=== PATIENT | male | born 1990 | race Caucasian/White ===

== ENCOUNTER 2018-01-08 22:20 | Emergency (ER) | payer OTHER, SELFPAY ==
[2018-01-08 22:26] VITALS: BP 140/77; PULSE 63; RESP 16; TEMP 37; O2SAT 100; BMI 26.5
[2018-01-08 23:18] VITALS: BP 130/75; PULSE 77; RESP 16; O2SAT 100
--- NOTE | 2018-01-09 05:11 | ED_ITS ---
HPI - Wound/Laceration General Chief Complaint: Wound/Laceration Stated Complaint: LEFT HAND LACERATION Time Seen by Provider: 01/08/18 22:29 Source: patient Mode of arrival: ambulatory Limitations: no limitations History of Present Illness HPI narrative: 27-year-old otherwise healthy male presents with a chief complaint of a laceration to the tip of his left thumb while using a sharp knife to remove reflective material from a helmet. He has full range of motion and denies numbness, tingling or weakness. His tetanus is up-to-date. He denies other injury Onset (ago): minute(s) Extremity Location: Left: hand Place: home Patient tetanus UTD: Yes Context: accidental Associated symptoms: none Review of Systems Review of Systems All systems reviewed & are unremarkable except as noted in HPI and below Constitutional Denies chills, Denies fever(s), Denies lethargy and Denies weakness Eyes Denies change in vision, Denies eye discharge, Denies irritation and Denies loss of vision ENT Ears, Nose, Mouth, and Throat: Denies change in voice, Denies neck pain and Denies sore throat Cardiovascular Denies chest pain, Denies irregular heart rhythm, Denies lightheadedness, Denies palpitations, Denies dyspnea, Denies dyspnea on exertion and Denies orthopnea Respiratory Denies cough, Denies dyspnea, Denies dyspnea on exertion and Denies wheezing Gastrointestinal Gastrointestinal: Denies abdominal pain, Denies change in bowel habits, Denies diarrhea, Denies nausea and Denies vomiting Genitourinary Denies hematuria, Denies flank pain, Denies urinary incontinence and Denies urinary urgency Musculoskeletal Denies neck pain Integumentary/Breasts Denies pruritus, Denies erythema, Denies rash and Reports wounds Neurologic Denies confusion, Denies loss of vision and Denies weakness Psychiatric Denies anxiety, Denies confusion, Denies depression, Denies homicidal ideation and Denies suicidal ideation Endocrine Denies palpitations Hematologic/Lymphatic Denies easy bruising Allergic/Immunologic Denies wheezing [facility] Social History Smoking Status: Never smoker Exam Narrative Exam Narrative: GEN: AOx3 and in mild distress EYES: Pupils are equal, round, and reactive to light and accommodation. Extraoccular muscles are intact bilaterally. There is no subconjunctival hemorrhage or exudate. CHEST: Lungs are clear to auscultation bilaterally and free of wheezes, rales, or rhonchi. Heart rate is regular rhythm, there are no murmurs, clicks, rubs, or gallops. There is no chest wall tenderness. ABD: Abdomen is soft and nontender. There is no guarding or rebound. Bowel sounds are normal in all 4 quadrants. There is no mass or organomegaly. EXT: Full painless ROM of all extremities with no loss of sensation or strength. SKIN: 1.5 cm superficial laceration to tip of left thumb. No tendon, bone or arterial involvement Warm, pink, and dry. No erythema or rash Initial Vital Signs Initial Vital Signs: Vital Signs Temperature 98.6 F 01/08/18 22:26 Pulse Rate 63 01/08/18 22:26 Respiratory Rate 16 01/08/18 22:26 Blood Pressure 140/77 H 01/08/18 22:26 Pulse Oximetry 100 01/08/18 22:26 Procedures Laceration Repair Laceration 1: Site: hand Side (If applicable): left Size (cm): 1.5 Description: linear Depth: simple, single layer Local Anesthetic: lidocaine 1% Amount of anesthesia used (mL): 4 Pre-repair: wound explored Skin layer closed with: nylon Size (cm): 5-0 Number of sutures: 4 Technique: simple, interrupted Course Vital Signs - 8 hr 01/08/18 22:26 01/08/18 23:18 Temperature 98.6 F Pulse Rate 63 77 Respiratory Rate 16 16 Blood Pressure 140/77 H 130/75 H Pulse Oximetry 100 100 Discharge Plan Departure Patient Disposition: Home Clinical Impression: Laceration of thumb Discharge Date/Time: 01/08/18 23:19 Interventions: ED Discharge Assessment Last Done: 01/08/18 23:18 Instructions: DI for Laceration Repair Activity Restrictions/Additional Instructions: Please keep the wound clean and dry to the best of your ability. Please monitor for signs of infection such as redness to the skin or increasing pain. Have the sutures removed by your doctor in about 7 days. If you are unable to get into your doctor, we would be happy to remove the sutures in that same timeframe.
== END 2018-01-08 23:19 | disposition home or self-care (01) ==
PROVIDERS: Emergency Provider Emergency Medicine; Family Provider Preventive Medicine Aerospace Medicine; PCP Preventive Medicine Aerospace Medicine
DX: S61.412A Laceration without foreign body of left hand, initial encounter (principal); W26.0XXA Contact with knife, initial encounter
CPT/HCPCS: 12002; 99283

== ENCOUNTER → 2019-02-22 16:33 | Outpatient (CLI) | payer OTHER, SELFPAY | PROVIDERS: PCP Preventive Medicine Aerospace Medicine | DX: Z23 Encounter for immunization (principal) | CPT/HCPCS: 90471; 90686 ==

== ENCOUNTER → 2021-01-02 13:12 | Outpatient (CLI) | payer OTHER, SELFPAY ==
[2021-01-02 14:17] LABS: COVID19 -Nasal RAPID Negative (Negative)
== END ==
PROVIDERS: PCP Family Medicine; Visit Provider Physician Assistant
DX: R05 Cough (principal); Z20.822 Contact with and (suspected) exposure to COVID-19
CPT/HCPCS: 87635

== ENCOUNTER → 2021-03-19 10:58 | Outpatient (CLI) | payer OTHER, SELFPAY ==
--- NOTE | 2021-03-19 11:00 | DI.RAD.S_ITS ---
PROCEDURE: XR KNEE RT 3V INDICATIONS: right knee and low back pain TECHNIQUE: 3 views of the knee were acquired. COMPARISON: None. FINDINGS: Bones: No fractures or dislocations. No suspicious bony lesions. Soft tissues: Prominent joint effusion. No suspicious soft tissue calcifications. IMPRESSION: Prominent effusion. No visualized acute fracture or dislocation. However, if clinical concern and/or pain persist, short interval imaging followup in 7-10 days is recommended, as occult injury cannot be definitively excluded. Dictated by: Aby Langley M.D. on 03/19/2021 at 17:19 Approved by: Aby Langley M.D. on 03/19/2021 at 17:21
--- NOTE | 2021-03-19 11:00 | DI.RAD.S_ITS ---
PROCEDURE: XR LUMBAR SPINE 2-3V INDICATIONS: right knee and low back pain TECHNIQUE: 3 views of the lumbar spine were acquired. COMPARISON: None. FINDINGS: Bones: 5 [id number] vertebrae are present. Trace levo curvature centered at the L3 level.. No vertebral body compression fractures. No suspicious bony lesions. Soft tissues: Overlying bowel gas pattern is normal. No suspicious soft tissue calcifications. IMPRESSION: Trace levocurvature; otherwise normal L-spine. Dictated by: Manjit Christopher [facility] Interpreted: Oscar Ochoa MD on 03/19/2021 at 11:26 Transcribed by: SHA on 03/19/2021 at 11:27 Approved by: Oscar Ochoa M.D. on 03/19/2021 at 11:50
== END ==
PROVIDERS: PCP Family Medicine; Referring Provider Family Medicine; Visit Provider Family Medicine
DX: M25.561 Pain in right knee (principal); M54.50 Low back pain, unspecified; M25.461 Effusion, right knee
CPT/HCPCS: 72110; 73562

== ENCOUNTER → 2022-04-11 13:25 | Outpatient (CLI) | payer OTHER, SELFPAY ==
[2022-04-11 14:31] LABS: Influenza A - CEPHEID Flu A POSITIVE (NEGATIVE); Influenza B - CEPHEID Flu B NEGATIVE (NEGATIVE); Respiratory Syncytial Virus Negative (Negative)
[2022-04-11 14:34] LABS: COVID-19 CEPHEID 4-PLEX PCR Negative (Negative)
== END ==
PROVIDERS: PCP Family Medicine; Visit Provider Registered Nurse
DX: R05.9 Cough, unspecified (principal)
CPT/HCPCS: 0241U

== ENCOUNTER → 2022-08-01 11:11 | Outpatient (CLI) | payer OTHER, SELFPAY ==
[2022-08-01 11:29] LABS: Add Manual Diff / Slide Review NO; Basophils Absolute Auto 0 /uL (0-100); Basophils Percent Auto 0.8 % (0-2); Eosinophils Absolute Auto 100 /uL (0-450); Eosinophils Percent Auto 1.8 % (2-4); Hemoglobin 13.9 g/dL (13.5-17.5); Lymphocytes Absolute Auto 1200 /uL (1100-4500); Lymphocytes Percent Auto 29.7 % (25-40); Mean Corpuscular HGB Conc 33.8 % (30-36); Mean Corpuscular Hemoglobin 29.4 PG (26-34); Mean Corpuscular Volume 87.1 fL (80-100); Monocytes Absolute Auto 500 /uL (0-900); Monocytes Percent Auto 11.7 % (3-14); Neutrophils Absolute Auto 2300 /uL (1500-7000); Platelet Count 207 X10^3/uL (150-400); Red Blood Cell Count 4.71 X10^6/uL (4.5-5.9); Red Cell Distribution Width 13.2 % (11.6-14.8); White Blood Cell Count 4.1 X10^3/uL (4.5-11.0)
[2022-08-01 11:40] LABS: Alanine Aminotransferase 31 IU/L (<50); Albumin 4.5 g/dL (3.5-5.0); Albumin Globulin Ratio 1.5 (1.0-2.8); Alkaline Phosphatase 57 U/L (38-126); Aspartate Aminotransferase 30 IU/L (17-59); BUN Creatinine Ratio 19.6 (6-22); Bilirubin Total 0.6 mg/dL (0.2-1.3); Blood Urea Nitrogen 18 mg/dL (9-20); Calcium 8.9 mg/dL (8.4-10.2); Carbon Dioxide 27 mmol/L (22-32); Chloride 104 mmol/L (98-107); Cholesterol 198 mg/dL (140-199); Estimated Glomerular Filt Rate > 60 mL/min (>60); Globulin 3.1 g/dL (1.7-4.1); Glucose 95 mg/dL (70-100); HDL Cholesterol 71 mg/dL (40-60); HEMOLYSIS < 15 (0-50); LDL Cholesterol Calculated 119 mg/dL (<100); Sodium 140 mmol/L (137-145); Total Protein 7.6 g/dL (6.3-8.2); Triglycerides 41 mg/dL (35-150)
== END ==
PROVIDERS: PCP Family Medicine; Referring Provider Family Medicine; Visit Provider Family Medicine
DX: Z00.00 Encounter for general adult medical examination without abnormal findings (principal)
CPT/HCPCS: 36415; 80053; 80061; 83036; 85025

== ENCOUNTER → 2022-08-16 16:40 | Outpatient (CLI) | payer OTHER, SELFPAY ==
[2022-09-03 10:54] LABS: Acetylcholine Receptor Bind AB <0.03
[2022-09-03 11:00] LABS: Acetylcholine Blocking AB 12
[2022-09-03 11:04] LABS: Acetylcholine Modulating AB 0
== END ==
PROVIDERS: PCP Family Medicine; Referring Provider Family Medicine; Visit Provider Family Medicine
DX: H02.409 Unspecified ptosis of unspecified eyelid (principal); H57.02 Anisocoria
CPT/HCPCS: 36415; 83519

== ENCOUNTER → 2022-08-25 08:56 | Outpatient (CLI) | payer OTHER, SELFPAY ==
--- NOTE | 2022-08-25 11:37 | DI.MRI.S_ITS ---
PROCEDURE: MR HEAD/BRAIN WO/W CON INDICATIONS: New headache, visual field deficit, drooping eyelid TECHNIQUE: Noncontrast axial T1 spin echo, axial T2 fast spin echo, sagittal and axial FLAIR, coronal T2 fast spin echo, axial gradient echo, axial diffusion and ADC through the brain. After the administration of contrast, axial and coronal and sagittal 3D VIBE or T1 spin echo with fat saturation through the brain. COMPARISON: None. FINDINGS: Image quality: Excellent. CSF Spaces: Basal cisterns are patent. No extra-axial fluid collections. Ventricles are normal in size and shape. Brain: No midline shift. No intracranial bleeds or masses. No abnormal intracranial enhancement. The brainstem appears normal. Diffusion-weighted images demonstrate no acute ischemic insults. No chronic ischemic insults. Normal intravascular flow voids are present. Skull and face: Calvarial marrow is normal in signal. Orbits appear normal. Numerous nonenhancing scalp lesions are incidentally noted. Sinuses: There is a mucous retention cyst seen within the left maxillary sinus. Sinuses and mastoids otherwise appear clear. Mild leftward nasal septal deviation incidentally noted. IMPRESSION: No imaging explanation is found for this patient's presenting symptoms. No findings of acute or subacute infarction can be seen. No masses or abnormal enhancement can be seen. Dictated by: Narciso Grimaldo M.D. on 08/25/2022 at 11:20 Approved by: Narciso Grimaldo M.D. on 08/25/2022 at 11:22
== END ==
PROVIDERS: PCP Family Medicine; Referring Provider Family Medicine; Visit Provider Family Medicine
DX: G44.52 New daily persistent headache (NDPH) (principal); H53.40 Unspecified visual field defects; H57.02 Anisocoria; H02.401 Unspecified ptosis of right eyelid
CPT/HCPCS: 70553; A9579

== ENCOUNTER 2023-03-29 17:24 | Emergency (ER) | payer OTHER, SELFPAY ==
[2023-03-29 17:40] VITALS: BP 137/78; PULSE 69; RESP 16; TEMP 37; O2SAT 97; BMI 30.4
--- NOTE | 2023-03-29 17:59 | PC.NURSE ---
Bleeding controlled while patient in room 3, gauz at bedside for patient. Pt was cutting a yellow pepper and caught his thumb in the mix of vegetable slicing.
--- NOTE | 2023-03-29 18:22 | ED_ITS ---
HPI - Wound/Laceration General Chief Complaint: Wound/Laceration Stated Complaint: cut left thumb Time Seen by Provider: 03/29/23 17:52 Source: patient and family Mode of arrival: Ambulatory History of Present Illness HPI narrative: Patient is a 32-year-old male significant past medical history presenting today with left thumb laceration. Cutting peppers for dinner when cut left thumb. Numbness at the tip there is nail bed involvement. Right-hand dominant immunizations up-to-date Related Data Previous Rx's Medication Instructions Recorded mometasone 0.1 % topical cream 1 applic topical DAILY #45 grams 08/16/22 Allergies Allergy/AdvReac Type Severity Reaction Status Date / Time No Known Drug Allergies Allergy Verified 08/16/22 15:55 Patient History Medical History (Updated 03/29/23 @ 18:50 by Estela Ashford DO) Visual field defect New daily persistent headache Anisocoria Psoriasis Squamous cell carcinoma of skin Family History Mother No problems noted. Father No problems noted. Sister No problems noted. Sister No problems noted. Social History Smoking Status: Never smoker during the past year weight has: remained stable well-balanced diet: daily or most days daily servings fruits/ve-4 caffeine: Yes eating out: 1-3 times/week Type(s) of exercise: bicycling, weight lifting and running frequency: daily duration: 30-45 minutes/day Smoking Status: Never smoker alcohol intake frequency: holidays/special occasions only Substance Use Type: does not use Exam Initial Vital Signs Initial Vital Signs: Vital Signs Temperature 98.6 F 03/29/23 17:40 Pulse Rate 69 03/29/23 17:40 Respiratory Rate 16 03/29/23 17:40 Blood Pressure 137/78 03/29/23 17:40 Pulse Oximetry 97 03/29/23 17:40 Oxygen Delivery Method Room Air 03/29/23 17:40 GENERAL: Well-appearing, well-nourished and in no acute distress. CARDIOVASCULAR: peripheral pulses in tact, cap refill <2 sec RESPIRATORY: No respiratory distress, speaks in full sentences without difficulty EXTREMITIES: Normal range of motion, no clubbing or edema. Neurovascularly intact NEUROLOGICAL: Cranial nerves II through XII grossly intact. Normal gait and speech. SKIN: Left thumb distal tip flap like laceration Extrem Fingers- Fingertip Back: 2 1. Flap like laceration nail bed involvement 2 cm Procedures Laceration Repair Laceration 1: Site: hand (thumb) Side (If applicable): left Size (cm): 2 Description: flap Depth: simple, single layer Local Anesthetic: lidocaine 1% Amount of anesthesia used (mL): 2 Pre-repair: wound explored, irrigated extensively and deep structures intact Skin layer closed with: nylon Skin layer suture size: 5-0 Number of sutures: 6 Technique: simple, interrupted Nerve Block Nerve Block 1: Local Anesthetic: lidocaine 1% Amount of anesthesia used (mL): 2 Side: left Nerve Blocks: digital Procedure Successful: Yes Patient Tolerated Procedure: Well and No complications Complications: none Course Vital Signs Vital signs: Vital Signs - 8 hr 03/29/23 17:40 Temperature 98.6 F Pulse Rate 69 Respiratory Rate 16 Blood Pressure 137/78 Pulse Oximetry 97 Oxygen Delivery Method Room Air MDM - Wound/Laceration MDM Narrative Medical decision making narrative: 32-year-old male right-hand dominant presents today with left thumb laceration while cutting food for dinner. There is the very tip nail bed involvement. It is easily repaired responded well to digital block. No need for x-ray or antibiotics. Discharge Plan Departure Patient Disposition: Home Clinical Impression: Laceration of left thumb without foreign body with damage to nail Instructions: DI for Laceration Repair Activity Restrictions/Additional Instructions: Dull knives are better than sharp knives Have sutures removed in 7-10 days Do whatever Ashley says Prescriptions: No Action mometasone 0.1 % cream 1 applic TOP DAILY Qty: 45 1RF Referrals: Grzegorz Castillo MD [Primary Care Provider] - Stand Alone Forms: Patient Portal/API
== END 2023-03-29 19:02 | disposition home or self-care (01) ==
PROVIDERS: Emergency Provider Emergency Medicine; PCP Family Medicine
DX: S61.112A Laceration without foreign body of left thumb with damage to nail, initial encounter (principal); W26.9XXA Contact with unspecified sharp object(s), initial encounter; Y93.G3 Activity, cooking and baking
CPT/HCPCS: 12001; 64450; 99281; 99283

== ENCOUNTER → 2024-04-25 11:05 | Outpatient (CLI) | payer OTHER, SELFPAY ==
[2024-04-25 11:51] LABS: Add Manual Diff / Slide Review NO; Basophils Absolute Auto 0 /uL (0-100); Basophils Percent Auto 0.7 % (0-2); Eosinophils Absolute Auto 100 /uL (0-450); Eosinophils Percent Auto 1.4 % (2-4); Hematocrit 41.9 % (41-53); Hemoglobin 14.1 g/dL (13.5-17.5); Lymphocytes Absolute Auto 1800 /uL (1100-4500); Lymphocytes Percent Auto 35.3 % (25-40); Mean Corpuscular HGB Conc 33.7 % (30-36); Monocytes Absolute Auto 400 /uL (0-900); Monocytes Percent Auto 7.8 % (3-14); Neutrophils Absolute Auto 2700 /uL (1500-7000); Neutrophils Percent Auto 54.8 % (50-75); Platelet Count 254 X10^3/uL (150-400); Red Blood Cell Count 4.71 X10^6/uL (4.5-5.9); Red Cell Distribution Width 12.8 % (11.6-14.8)
[2024-04-25 12:18] LABS: Alanine Aminotransferase 27 IU/L (<50); Albumin 4.5 g/dL (3.5-5.0); Albumin Globulin Ratio 1.7 (1.0-2.8); Alkaline Phosphatase 62 U/L (38-126); Aspartate Aminotransferase 29 IU/L (17-59); BUN Creatinine Ratio 21.6 (6-22); Bilirubin Total 1.1 mg/dL (0.2-1.3); Blood Urea Nitrogen 22 mg/dL (9-20); Calcium 9.4 mg/dL (8.4-10.2); Carbon Dioxide 27 mmol/L (22-32); Chloride 104 mmol/L (98-107); Cholesterol 240 mg/dL (140-199); Estimated Glomerular Filt Rate > 60 mL/min (>60); Globulin 2.6 g/dL (1.7-4.1); Glucose 94 mg/dL (70-100); HDL Cholesterol 76 mg/dL (40-60); HEMOLYSIS < 15 (0-50); LDL Cholesterol Calculated 153 mg/dL (<100); Potassium 4.2 mmol/L (3.4-5.1); Sodium 136 mmol/L (137-145); Total Protein 7.1 g/dL (6.3-8.2); Triglycerides 53 mg/dL (35-150)
[2024-04-25 12:45] LABS: TSH w/ Reflex to FT4 1.12 uIU/mL (0.47-4.68)
[2024-04-26 03:36] LABS: Apolipoprotein B 103 mg/dL (<90)
== END ==
PROVIDERS: PCP Family Medicine; Referring Provider Family Medicine; Visit Provider Family Medicine
DX: Z00.00 Encounter for general adult medical examination without abnormal findings (principal)
CPT/HCPCS: 36415; 80053; 80061; 82172; 84443; 85025